=== PATIENT | male | born 1955 | race African-American/Black ===

== ENCOUNTER 2017-12-30 20:15 | Emergency (ER) | payer OTHER ==
[2017-12-30] MEDS: IBUPROFEN 800 MG TABLET. PO (21:45)
== END 2017-12-30 22:01 | disposition home or self-care (01) ==
LOC: ER 20:15
DX: S39.012A Strain of muscle, fascia and tendon of lower back, initial encounter (principal); V43.52XA Car driver injured in collision with other type car in traffic accident, initial encounter; Y93.89 Activity, other specified; Y92.488 Other paved roadways as the place of occurrence of the external cause; Y99.8 Other external cause status
CPT/HCPCS: 99282